=== PATIENT | male | born 1965 | race Caucasian/White ===

== ENCOUNTER 2016-12-17 20:39 | Emergency (ER) | payer MEDICAID ==
[~2016-12-17] VITALS: Ht 182.9 cm; Wt 92.5 kg
[~2016-12-17 20:39] MED LIST: AMBIEN5 MG ORAL; PERCOCET 10-321 EAC1 PO; PERCOCET 10-321 EACH ORAL; SOMA350 MG PO
[2016-12-17 20:40] VITALS: BP 135/79
[2016-12-17] MEDS ORDERED: IBUPROFEN600 MG ORAL (21:03)
--- NOTE | 2016-12-17 21:04 | Emergency Room Report ---
History of Present Illness General Chief Complaint: Pain Source: Patient Present Illness HPI Is a 51-year-old male who has a history of chronic pain. He presents with chief complaint of back and leg pain. Pain is 10 out of 10 out of his pain medication. Denies any fever chills denies any trauma. No other complaint. Similar complaint in the past Allergies: Coded Allergies: No Known Allergies (Unverified , 02/11/13) Patient History Past Medical History: see triage record, old chart reviewed Past Surgical History: other Pertinent Family History: none Social History: Reports: alcohol use Immunizations: other Reviewed Nursing Documentation: PMH: Agreed, PSxH: Agreed Nursing Documentation-PMH Hx Hypertension: Yes Hx Asthma: Yes History Of Psychiatric Problem: Yes Hx Seizures: Yes Review of Systems Eye: Denies: blurred vision, eye pain ENT: Denies: ear pain, nose congestion, throat swelling Respiratory: Denies: cough, shortness of breath Cardiovascular: Denies: chest pain, palpitations Gastrointestinal: Denies: abdominal pain, diarrhea, nausea, vomiting Musculoskeletal: Reports: back pain, Denies: joint pain Skin: Denies: rash Neurological: Denies: headache, numbness Endocrine: Denies: increased thirst, increased urine Hematologic/Lymphatic: Denies: easy bruising All Other Systems: negative except mentioned in HPI Physical Exam Vital Signs Date Time Temp Pulse Resp B/P Pulse Ox O2 Delivery O2 Flow Rate FiO2 12/17/16 20:32 99.0 120 16 142/80 98 Room Air vitals with tachycardia Sp02 EP Interpretation: reviewed, normal General Appearance: well appearing, no apparent distress, alert Head: normocephalic, atraumatic Eyes: bilateral eye EOMI, bilateral eye PERRL ENT: hearing grossly normal, normal pharynx Neck: full range of motion, supple, no meningismus Respiratory: chest non-tender, lungs clear, normal breath sounds Cardiovascular #1: regular rate, rhythm, no murmur, tachycardia - Heart rate 104 Gastrointestinal: normal bowel sounds, non tender, no mass, no organomegaly, no bruit, non-distended Musculoskeletal: back normal, normal range of motion, other - Chronic lower extremity edema Neurologic: alert, oriented x3 Psychiatric: mood/affect normal Skin: warm/dry Medical Decision Making Diagnostic Impression: Primary Impression: Chronic pain Additional Impressions: Hip pain opiate dependence ER Course Patient presents with exacerbation of his chronic pain. He is out of his pain medication the last 4 days. No trauma. He said he seen pain management. We' ll discharge home. I see no evidence of cauda equina syndrome, epidural abscess , or neoplastic process. Last Vital Signs Date Time Temp Pulse Resp B/P Pulse Ox O2 Delivery O2 Flow Rate FiO2 12/17/16 20:32 99.0 120 16 142/80 98 Room Air Status: improved Disposition: HOME, SELF-CARE Condition: Stable Scripts Ibuprofen* (MOTRIN*) 600 Mg Tablet 600 MG ORAL Q8H Y for For Pain, #30 TAB 0 Refills Prov: NANCY WOOD M.D. 12/17/16 Patient Instructions: Chronic Pain Additional Instructions: Followup your DrRadha in 7 days. See Your DrRadha for refills. Return if worse NANCY WOOD M.D. Dec 17, 2016 21:04
[2016-12-17 21:15] VITALS: BP 130/75
== END 2016-12-17 21:25 | disposition home or self-care (01) ==
LOC: EDBD 20:39 → EMR 21:25
DX: G89.29 Other chronic pain (principal); M54.9 Dorsalgia, unspecified; M79.605 Pain in left leg; I10 Essential (primary) hypertension; J45.909 Unspecified asthma, uncomplicated; F11.20 Opioid dependence, uncomplicated
CPT/HCPCS: 99283